=== PATIENT | male | born 2000 | race Caucasian/White ===

== ENCOUNTER 2020-12-11 21:30 | Emergency (ER) | payer BC ==
[2020-12-12 01:43] LABS: HEMOGLOBIN 15.2 gm/dl (14.0-17.5); RED BLOOD COUNT 4.62 M/UL (4.20-5.50)
[2020-12-12 02:03] LABS: BUN/CREATININE RATIO 27 (0-10)
== END 2020-12-12 05:33 | disposition home or self-care (01) ==
LOC: ER1 21:30
PROVIDERS: Family Medicine
DX: F32.9 Major depressive disorder, single episode, unspecified (principal); F43.9 Reaction to severe stress, unspecified
CPT/HCPCS: 80053; 80307; 81001; 84439; 84443; 85025; 99284